=== PATIENT | male | born 1935 | race Caucasian/White ===

== ENCOUNTER 2019-01-23 22:38 | Emergency (ER) | payer BC ==
[~2019-01-23] VITALS: Ht 177.8 cm; Wt 89.5 kg
[~2019-01-23 22:38] MED LIST: ASPIRIN E.C. 8181 MG PO; CHILDREN'S ASPI81 M1 PO; FISH OIL1 IU PO; LATANOPROST 2.2.5 ML OP; LUTEIN10 MG PO; OR USE ONLY TIMO OP; PHARMASSURE LUTE6 MG PO; PRAVACHOL 20MG20 MG PO; PRAVASTATIN SOD10 MG PO; VALSARTAN320 MG PO; ZIAC 5/6.25MG T1 TAB PO
[2019-01-23] MEDS ORDERED: CLOPIDOGREL75 M2 PO (23:04)
[2019-01-23] MEDS ORDERED: SOTALOL HYDROCH80 MG PO (23:04)
[2019-01-23] MEDS ORDERED: LOSARTAN POTASS25 MG PO (23:05)
[2019-01-23 23:30] LABS: HEMATOCRIT 44.4 % (42.0-52.0); HEMOGLOBIN 15.5 g/dL (13.5-18.0); MEAN CELL VOLUME 88 fl (78-100); MEAN CORPUSCULAR HEMOGLOBIN 31 pg (27-31); MEAN CORPUSCULAR HGB CONC 35 g/dL (33-37); MEAN PLATELET VOLUME 10.7 fl (7.4-10.4); PLATELET COUNT 155 K/mm3 (130-400); RED BLOOD COUNT 5.03 M/mm3 (4.20-5.60); RED CELL DISTRIBUTION WIDTH 13.5 % (11.5-14.5); WHITE BLOOD COUNT 5.2 K/mm3 (4.8-10.8)
[2019-01-23 23:40] LABS: ALBUMIN 3.6 g/dL (3.4-4.8); POTASSIUM 3.8 mmol/L (3.5-5.1)
[2019-01-23 23:41] LABS: CALCIUM 8.8 mg/dL (8.3-10.5)
[2019-01-23 23:42] LABS: TOTAL PROTEIN 6.3 g/dL (6.2-8.1)
[2019-01-23 23:44] LABS: TOTAL BILIRUBIN 0.4 mg/dL (0.2-1.2)
[2019-01-23 23:51] LABS: LYMPHOCYTE 14 % (20-51); MONOCYTE 16 % (3-10); NEUTROPHILS 70 % (42-75)
[2019-01-23 23:55] LABS: PROTHROMBIN TIME 10.8 SECONDS (9.0-12.0)
[2019-01-24 00:22] LABS: URINE APPEARANCE CLEAR; URINE BILIRUBIN NEGATIVE (NEGATIVE); URINE BLOOD 50 ery/uL (NEGATIVE); URINE COLOR YELLOW; URINE KETONE NEGATIVE (NEGATIVE); URINE LEUKOCYTE ESTERASE NEGATIVE (NEGATIVE); URINE NITRATE NEGATIVE (NEGATIVE); URINE PROTEIN(semi-quant) NEGATIVE (NEGATIVE); URINE UROBILINOGEN NORMAL (NORMAL); URINE WBC 0-1 /hpf (0-3)
[2019-01-24 02:07] VITALS: BP 153/74
== END 2019-01-24 02:13 | disposition short-term general hospital (02) ==
LOC: ED 22:38
PROVIDERS: Nurse Practitioner
DX: I48.91 Unspecified atrial fibrillation (principal); R55 Syncope and collapse; I10 Essential (primary) hypertension; M10.9 Gout, unspecified; E78.5 Hyperlipidemia, unspecified; Z98.890 Other specified postprocedural states; Z95.0 Presence of cardiac pacemaker; Z79.02 Long term (current) use of antithrombotics/antiplatelets; Z79.82 Long term (current) use of aspirin

== ENCOUNTER 2021-03-03 08:53 | Emergency (ER) | payer BC ==
[~2021-03-03] VITALS: Ht 177.8 cm; Wt 89.5 kg
[~2021-03-03 08:53] MED LIST changes: +CLOPIDOGREL75 M2 PO; +LOSARTAN POTASS25 MG PO; +SOTALOL HYDROCH80 MG PO
[2021-03-03 11:47] VITALS: BP 153/92
== END 2021-03-03 11:47 | disposition home or self-care (01) ==
LOC: ED 08:53
DX: S09.90XA Unspecified injury of head, initial encounter (principal); S00.81XA Abrasion of other part of head, initial encounter; I10 Essential (primary) hypertension; I48.91 Unspecified atrial fibrillation; E78.5 Hyperlipidemia, unspecified; Z79.01 Long term (current) use of anticoagulants; Z79.02 Long term (current) use of antithrombotics/antiplatelets; Z79.82 Long term (current) use of aspirin; Z79.899 Other long term (current) drug therapy; W19.XXXA Unspecified fall, initial encounter; W22.8XXA Striking against or struck by other objects, initial encounter

== ENCOUNTER 2021-03-21 09:40 | Emergency (ER) | payer BC ==
[2021-03-21 10:26] LABS: BASO # 0.05 K/mm3 (0.02-0.10); EOS # 0.03 K/mm3 (0.04-0.40); EOS % 0.5 % (0.0-4.0); HEMATOCRIT 47.4 % (42.0-52.0); HEMOGLOBIN 15.8 g/dL (13.5-18.0); LYMPH# 0.79 K/mm3 (1.50-4.00); MEAN CELL VOLUME 92 fl (78-100); MEAN CORPUSCULAR HEMOGLOBIN 31 pg (27-31); MEAN CORPUSCULAR HGB CONC 33 g/dL (33-37); MEAN PLATELET VOLUME 11.2 fl (7.4-10.4); MONO # 0.63 K/mm3 (0.20-0.80); NEU # 4.94 K/mm3 (1.40-6.50); PLATELET COUNT 130 K/mm3 (130-400); RED BLOOD COUNT 5.14 M/mm3 (4.20-5.60); RED CELL DISTRIBUTION WIDTH 13.6 % (11.5-14.5); WHITE BLOOD COUNT 6.5 K/mm3 (4.8-10.8)
[2021-03-21 10:33] LABS: URINE APPEARANCE HAZY; URINE COLOR BLOODY; URINE PROTEIN(semi-quant) 3+ (NEGATIVE)
[2021-03-21 10:34] LABS: URINE BILIRUBIN NEGATIVE (NEGATIVE); URINE BLOOD 250 ery/uL (NEGATIVE); URINE GLUCOSE NEGATIVE (NEGATIVE); URINE KETONE NEGATIVE (NEGATIVE); URINE LEUKOCYTE ESTERASE 1+ (NEGATIVE); URINE NITRATE NEGATIVE (NEGATIVE); URINE UROBILINOGEN NORMAL (NORMAL)
[2021-03-21 10:40] LABS: PROTHROMBIN TIME 10.7 SECONDS (9.0-12.0)
[2021-03-21 10:41] LABS: ALBUMIN 3.7 g/dL (3.4-4.8); POTASSIUM 4.4 mmol/L (3.5-5.1)
[2021-03-21 10:42] LABS: CALCIUM 8.9 mg/dL (8.3-10.5)
[2021-03-21 10:43] LABS: TOTAL PROTEIN 6.6 g/dL (6.2-8.1)
[2021-03-21 10:45] LABS: TOTAL BILIRUBIN 0.8 mg/dL (0.2-1.2)
[2021-03-21 13:20] VITALS: BP 168/86
== END 2021-03-21 13:20 | disposition home or self-care (01) ==
LOC: ED 09:40
PROVIDERS: Physician Assistant
DX: N32.89 Other specified disorders of bladder (principal); I25.10 Atherosclerotic heart disease of native coronary artery without angina pectoris; Z79.82 Long term (current) use of aspirin
CPT/HCPCS: Q9967

== ENCOUNTER → 2023-06-14 | Outpatient (CLI) | payer BC ==
[~2023-06-14] MED LIST changes: +BISOPROLOL FUMA10 M1 PO; +CORDARONE200 MG/TAB PO; +COZAAR100 MG PO; +LIDODERM1 EACH TP; +MORGIDOX 1X100100 MG PO; +PROAIR HFA0.09 MG/AC IH
== END ==
LOC: RAD 15:38
DX: M86.142 Other acute osteomyelitis, left hand (principal); L03.012 Cellulitis of left finger